=== PATIENT | female | born 1985 | race Caucasian/White ===

== ENCOUNTER 2025-02-27 21:55 | Emergency (ER) | payer BC, SELFPAY ==
[2025-02-27 21:57] VITALS: BP 110/76
[2025-02-27 22:21] VITALS: BP 102/70
--- NOTE | 2025-02-27 22:55 | ED.GENMED ---
History of Present Illness
<BART Mccullough - Last Filed: 02/27/25 23:21>
General
Chief Complaint: Chest Pain
Source: patient and family
Exam Limitations: none
Time Seen by Provider: 02/27/25 22:51
History of Present Illness
History of Present Illness:
Pt is a 39 yo F with a PMH of migraines and esophagitis who is s/p tummy tuck, liposuction, and breast lift (02/11/2025) and presents to the ER c/o cough, chest pressure x 1 week. Patient explains that she started coughing roughly one week ago, mostly
a dry cough that was intermittent, now is more constant. She notes the cough is made worse by taking a deep breath, and is relieved by use of cough drops, OTC antitussives, and hot tea. She notes that her 5 yo daughter has similar symptoms, but
developed the cough after she did. She notes that on occasion with coughing she has some pain at her incision sites from surgery, but generally states she is healing well from surgery. She has noticed today some pressure in her chest, pointing to
her sternum and explaining that this came on today and is making her concerned for a blood clot given her fairly recent surgery. Patient states she has had some edema but has been trying to be active lately, notes she thought this would help to
decrease her risk of blood clot. She denies fevers, nausea, vomiting, changes in bowel movements, dizziness, numbness, or any other associated symptoms.
Past History
<Ro Heath DO - Last Filed: 02/28/25 02:43>
Past History
ED Past Medical History: Other (Migraine headaches; seasonal allergies)
ED Past Surgical History: Gynecological (LEEP procedure) and Other (Tummy tuck, liposuction, breast lift February 2025)
Social History
Tobacco: Non-smoker
Personal:
Living: with family
Family History
Family History: Other (Noncontributory)
Review of Systems
<ST JamelCO - Last Filed: 02/27/25 23:21>
Review of Systems
All Other Systems: ROS reviewed and negative except as documented in HPI and ROS
Phy Exam
<ST JamelCO - Last Filed: 02/27/25 23:21>
General Physical Exam
General Presentation: well appearing and no apparent distress
General age: appears stated age
General Skin: warm and dry
General Habitus: normal
General Mental: alert
General Hydration: appears well hydrated
Cardiovascular Exam
Cardiovascular Exam: regular rate/rhythm
Heart Sounds: normal
Pulmonary Exam
Pulmonary Exam: lungs clear
Oxygen Status: room air
Cough: non productive cough
Respirations: controlled ventilations
Chest Wall: Left anterior: tenderness, Right anterior: tenderness, Left lateral: tenderness and Right lateral: tenderness
Gastrointestinal Exam
Gastrointestinal Exam: normal bowel sounds
Abdominal Scars: horizontal suprapubic, left upper quadrant, right upper quadrant and vertical midline
Auscultation of Abdomen: normal
Scores
<Ro Heath DO - Last Filed: 02/28/25 02:43>
Heart Score for Chest Pain Patients
STEMI patient?: No
History: Slightly or Non-Suspicious
ECG: Normal
Age: </= 45 years
Risk Factors: No Risk Factors
Troponin: </= Normal Limit
Heart Score for Chest Pain Patients: 0
Heart Score Risk: 2.5% MACE over next 6 weeks
Course
<Jannie Mas [facility] - Last Filed: 02/27/25 23:21>
Orders/Labs/Results
Orders:
Orders
02/27/25 22:01
EKG [Electrocardiogram (*1)] Urgent
Reason for Study: Chest Pain
02/27/25 22:02
EKG- Treatment ONCE
02/27/25 23:18
Ipratropium/Albuterol Sulfate [Duoneb] 3 ml INH R NOW STA
Test Result ONCE
02/27/25 23:25
Complete Blood Count/With Diff Urgent
Comprehensive Metabolic Panel Urgent
D-Dimer Urgent
HCG, Serum Qualitative Screen Urgent
Troponin I Urgent
02/27/25 23:31
Benzonatate [Tessalon Perles] 200 mg PO NOW STA
02/28/25 00:[address] [CT Chest PE Study] Urgent
Comment:
Reason For Exam: chest pain, cough, elevated d-dimer
Abnormal Lab Results
02/27/25
23:25
RBC 3.23 L 10^6/uL
(4.20-5.40)
Hgb 10.1 L g/dL
(12.0-16.0)
Hct 29.6 L %
(37.0-47.0)
MCH 31.3 H pg
(27.0-31.0)
Absolute Monos (auto) 0.7 H 10^3/uL
(0.1-0.6)
Monocytes % 9.5 H %
(1.7-9.3)
D-Dimer 1.24 H ug/mlFEU
(0.00-0.50)
Chloride 108 H mmol/L
(98-107)
ALT 36 H U/L
(0-35)
02/27/25 23:25
02/27/25 23:25
Vital Signs
Initial and Last Documented VS:
Initial Vital Signs
Temp Pulse Resp BP Pulse Ox
97.8 F 81 18 110/76 100
02/27/25 21:57 02/27/25 21:57 02/27/25 21:57 02/27/25 21:57 02/27/25 21:57
Last Documented Vital Signs
Temp Pulse Resp BP Pulse Ox
97.8 F 79 19 102/70 100
02/27/25 21:57 02/28/25 01:45 02/28/25 01:45 02/27/25 22:21 02/27/25 23:30
<Ro Heath, - Last Filed: 02/28/25 02:43>
Orders/Labs/Results
Orders:
Orders
02/27/25 22:01
EKG [Electrocardiogram (*1)] Urgent
Reason for Study: Chest Pain
02/27/25 22:02
EKG- Treatment ONCE
02/27/25 23:18
Ipratropium/Albuterol Sulfate [Duoneb] 3 ml INH R NOW STA
Test Result ONCE
02/27/25 23:25
Complete Blood Count/With Diff Urgent
Comprehensive Metabolic Panel Urgent
D-Dimer Urgent
HCG, Serum Qualitative Screen Urgent
Troponin I Urgent
02/27/25 23:31
Benzonatate [Tessalon Perles] 200 mg PO NOW STA
02/28/25 00:[address] [CT Chest PE Study] Urgent
Comment:
Reason For Exam: chest pain, cough, elevated d-dimer
Abnormal Lab Results
02/27/25
23:25
RBC 3.23 L 10^6/uL
(4.20-5.40)
Hgb 10.1 L g/dL
(12.0-16.0)
Hct 29.6 L %
(37.0-47.0)
MCH 31.3 H pg
(27.0-31.0)
Absolute Monos (auto) 0.7 H 10^3/uL
(0.1-0.6)
Monocytes % 9.5 H %
(1.7-9.3)
D-Dimer 1.24 H ug/mlFEU
(0.00-0.50)
Chloride 108 H mmol/L
(98-107)
ALT 36 H U/L
(0-35)
02/27/25 23:25
02/27/25 23:25
Vital Signs
Initial and Last Documented VS:
Initial Vital Signs
Temp Pulse Resp BP Pulse Ox
97.8 F 81 18 110/76 100
02/27/25 21:57 02/27/25 21:57 02/27/25 21:57 02/27/25 21:57 02/27/25 21:57
Last Documented Vital Signs
Temp Pulse Resp BP Pulse Ox
97.8 F 79 19 102/70 100
02/27/25 21:57 02/28/25 01:45 02/28/25 01:45 02/27/25 22:21 02/27/25 23:30
<Ro Heath DO - Last Filed: 02/28/25 02:43>
*Radiology
Radiology exam reviewed: radiology read reviewed
*Pulse Oximetry
Patient hypoxic: no
*EKG
Interpreted by ED Provider?: Yes
Interpretation: normal
Comparison EKG: no changes (Unchanged from previous May 2021)
Rate: normal
Rhythm: sinus
Peterson: normal axis
Interval: normal interval
QRS Pattern: normal QRS
Ischemia: no ischemia
*Hand Candle Molder Interpretation
Rate: normal
Interpretation: normal
Rhythm: sinus
*Critical Care Note
Total Time (30-74mins, 75-104mins- exclusive of procedures): Not Applicable
ED Attending Note
<BART Mccullough - Last Filed: 02/27/25 23:21>
-
Portions of this chart may have been created with voice recognition software.� Occasional wrong word or��sound alike� substitutions may have occurred due to the inherent limitations of voice recognition software.
<Ro Heath DO - Last Filed: 02/28/25 02:43>
ED Attending Note
Patient seen and examined by attending physician: Yes
I performed the substantive portion of visit, reviewed & personally made and approve the management plan that is documented in note by myself or HELEN.: Yes
ED Attending Note:
This is a 39-year-old woman with no significant past medical history save for occasional migraines, seasonal allergy. She underwent 'mommy makeover' 16 days ago consisting of tummy tuck, liposuction, breast lift. Surgery performed by Dr. Solares at
[facility]. She was placed on once daily Lovenox for a week and pain medication which she has discontinued over a week ago.
A few days after surgery she began with mild intermittent brief cough. Cough is worsened over the past week, dry, persistent and much worse today with complaints of bilateral anterior and bilateral lateral chest pain only noted with coughing. She
has had rare episodes of sneezing but denies nasal congestion, denies sore throat. She has not had a fever nor chills. No leg pain or swelling. No shortness of breath, no palpitations, no dizziness or lightheadedness.
Her 5-year-old daughter has had somewhat similar cough this week.
She spoke with her surgeon and was recommended to come to the ED for further evaluation and to rule out potential blood clot.
She takes no medicines on a daily basis.
Denies risk of with last menstrual period February 14.
No difficulty moving her bowels or bladder.
She states her daughter is up-to-date with immunizations and patient herself had Tdap 5 years ago with her .
GENERAL: 39-year-old woman appears her stated age, bright and alert, pleasant, appears in no acute distress. Frequent very brief dry cough is noted. She is able to speak in full sentences. No respiratory distress. is accompanying.
EYE: pupils equal. anicteric
NECK: Supple, nontender, no meningismus, no significant adenopathy. No JVD.
ENT: posterior pharynx is without injection nor edema nor exudate, scant clear postnasal drip is noted. Oral mucosa is moist. TM clear b/l, nares have moderately boggy pale blue turbinates without rhinorrhea.
CARDIAC: Regular rate and rhythm. no murmur. No rub.
LUNGS: Mildly decreased breath sounds at bases otherwise clear breath sounds bilaterally, no acute respiratory distress.
ABDOMEN: Abdominal binder in place, minimal incisional tenderness along the lower abdomen, no r/g, no cvat. normoactive BS.
NEUROLOGICAL: Alert and oriented x3, no focal neuro deficits. Gait is steady.
SKIN: Warm and dry, normal color, skin intact. No rash.
MUSCULOSKELETAL: No C/C/E. peripheral pulses are full and equal b/l. No palpable tenderness.
PSYCH: Normal and appropriate interaction.
Concern for acute bronchitis, pneumonia, PE.
Will trial DuoNeb nebulizer as well as Tessalon Perle.
Will check labs including D-dimer.
Will consider imaging based on clinical course and laboratory results.
02:30
Cough has significantly improved after nebulizer and Tessalon.
Patient noted no significant relief initially after nebulizer but now marked improvement and I suspect due to Tessalon.
Unremarkable laboratory studies save for mildly elevated D-dimer. As such CT of the chest/PE study obtained which is unremarkable. No PE, no lung consolidation nor pleural effusion. Patent airway. Postsurgical changes of breast lift bilaterally.
No focal soft tissue hematoma nor emphysema.
Will discharge to home with prescription for Tessalon pearls for as needed cough.
Discussed importance of staying well-hydrated on a daily basis. Humidifier or vaporizer at nighttime.
Prompt follow-up with PCP as well as plastic surgeon.
Return precautions discussed.
Discharge Plan
Departure
Patient Disposition: Home (Routine Discharge)
Date of Disposition: 02/28/25
Time of Disposition: 02:41
Patient with high blood pressure during this ER visit?: No
Condition: Good
Discharge Problem:
Acute bronchitis
Instructions: Acute bronchitis in adults, Cough in adults - ED discharge instructions
Prescriptions:
New
benzonatate 200 mg capsule
200 mg PO TID PRN (Reason: cough) Qty: 30 0RF
Discontinued
sucralfate 1 GM/10 ML suspension
1 gm PO ACHS Qty: 60 0RF
pantoprazole 40 MG tablet,delayed release (DR/EC)
40 mg PO DAILY Qty: 14 0RF
Referrals:
Chele Tafoya DO [Family Provider] - Call in 1-3 days for appt
Interventions
Interventions:
*General Assessment Last Done: 02/27/25 21:57
*ED COVID-19 Vaccine History Last Done: 02/27/25 21:57
ED- Cardiac Assessment Last Done: 02/28/25 00:16
Discharge Date and Time
Print Language: CITIZEN [place]
[2025-02-27] MEDS: DUONEB 3 ML INH (23:26)
[2025-02-27 23:35] LABS: % Basophils 0.4 % (0-2); % Eosinophils 1.9 % (0-6); % Immature Granulocytes 0.4 % (0-0.5); % Lymphocytes 24.1 % (20.5-51.1); % Monocytes 9.5 % (1.7-9.3); % Neutrophils 63.7 % (42.2-75.2); Absolute Eosinophils 0.2 10^3/uL (0-0.7); Absolute Lymphocytes 1.9 10^3/uL (1.2-3.4); Absolute Monocytes 0.7 10^3/uL (0.1-0.6); Hematocrit 29.6 % (37.0-47.0); Hemoglobin 10.1 g/dL (12.0-16.0); Mean Corp Hgb Conc. 34.1 g/dL (33.0-37.0); Mean Corpuscular Hgb 31.3 pg (27.0-31.0); Mean Corpuscular Volume 91.6 fL (81.0-99.0); Mean Platelet Volume 9.2 fL (7.4-10.4); Nucleated Red Blood Cells % 0 %; Platelet Count 289 10^3/uL (130-400); Red Blood Cell Count 3.23 10^6/uL (4.20-5.40); Red Cell Dist. Width 12.7 % (11.5-14.5); White Blood Cell Count 7.8 10^3/uL (4.8-10.8)
[2025-02-27 23:44] LABS: HCG, Serum Qualitative Screen Negative
[2025-02-27] MEDS: TESSALON PERLES 200 MG PO (23:46)
[2025-02-27 23:52] LABS: D-Dimer 1.24 ug/mlFEU (0.00-0.50)
[2025-02-27 23:59] LABS: Troponin I < 0.012 ng/ml
[2025-02-28 00:29] LABS: ALT (SGPT) 36 U/L (0-35); AST (SGOT) 25 U/L (14-36); Albumin 4.2 g/dl (3.5-5.0); Alkaline Phosphatase 57 U/L (38-126); Blood Urea Nitrogen 10 mg/dl (7-17); Calcium 9.1 mg/dl (8.4-10.2); Carbon Dioxide 26 mmol/L (22-30); Chloride 108 mmol/L (98-107); Glucose 93 mg/dl (70-99); Potassium 3.9 mmol/L (3.5-5.1); Sodium 141 mmol/L (135-145); Total Bilirubin 0.4 mg/dl (0.2-1.3); Total Protein 6.9 g/dl (6.3-8.2); eGFR > 60.00
== END 2025-02-28 02:56 | disposition home or self-care (01) ==
LOC: EMR 21:55
PROVIDERS: EMERGENCY PHYSICIAN Emergency Medicine; FAMILY PHYSICIAN Family Medicine
DX: J20.9 Acute bronchitis, unspecified (principal)
CPT/HCPCS: 99284; 94640; 71275; 80053; 84484; 84703; 85025; 85379; 93005; Q9967